=== PATIENT | female | born 1945 | race Caucasian/White ===

== ENCOUNTER 2017-02-13 10:23 | Observation (INO) | payer OTHER ==
[2017-02-13] VITALS (11 sets, daily range): BP systolic 122–205; BP diastolic 68–101; PULSE 72–88; RESP 16–18; TEMP 98.1–99.1; O2SAT 97–100
[~2017-02-13 10:23] MED LIST: CIPR500T4 PO; PYRI200T4 PO
[2017-02-13] MEDS ORDERED: SODIUM CHLOR 0.9% 1000 ML INJ 1,000 ML IV ONE (10:32)
--- NOTE | 2017-02-13 10:36 | PD ---
HPI Chief Complaint: Stroke Alert Time Seen by Provider: 10:32 Travel History International Travel<30 days: No Contact w/Intl Traveler<30days: No History of Present Illness HPI This is a 71-year-old female who presents to the emergency department with confusion that started at 9:30 this morning. Her says that she started to wander around the house and said she wanted to go to the drive-in tenriism across the street for craft fair that wasn't going on. She seemed aimless when she was wandering around the house. When they went in the car she was asking where her engagement ring was and he said she took it off for golfing yesterday. She said she didn't remember golfing yesterday. She started to look through her purse for it and then several minutes later she asked him again where her ring was. He says she doesn't remember any of the things that they did yesterday. He says this is very unlike her. She is healthy. She does have a history of high blood pressure. [facility] Past Medical History Hypertension: Yes (hx of not at present time-takes no meds) Menopausal: Yes Past Surgical History Hysterectomy: Yes Social History Alcohol Use: Yes (occas. wine) Tobacco Use: No Substance Use: No Allergies-Medications (Allergen,Severity, Reaction): Coded Allergies: penicillin G (Unverified Allergy, Severe, 02/13/17) Reported Meds & Prescriptions Reported Meds & Active Scripts Active Reported Glucosamine-Chondroitin 500-400 Mg Tab 1 Tab PO DAILY Lisinopril 10 Mg Tab 10 Mg PO BID Review of Systems Except as stated in HPI: all other systems reviewed are Neg Physical Exam Narrative GENERAL:Well appearing, no acute distress SKIN: Focused skin assessment warm and dry. HEAD: Atraumatic. Normocephalic. EYES: Pupils equal and round. No injection or drainage. ENT: Moist mucous membranes NECK: Trachea midline. CARDIOVASCULAR: Regular rate and rhythm. No murmur appreciated. RESPIRATORY: Clear to auscultation. Breath sounds equal bilaterally. GASTROINTESTINAL: Abdomen soft, non-tender, nondistended. MUSCULOSKELETAL: No obvious deformities. NEUROLOGICAL: Unable to name the president or the month but was able to name her name. No obvious cranial nerve deficits. No dysarthria or aphasia. No upper or lower extremity drift. No upper extremity ataxia. Visual jaramillo intact. PSYCHIATRIC: Appropriate mood and affect; insight and judgment normal. Data Data Last Documented VS Vital Signs Date Time Temp Pulse Resp B/P (MAP) Pulse Ox O2 Delivery O2 Flow Rate FiO2 02/13/17 10:52 100 Room Air 02/13/17 10:45 74 18 175/85 (115) 02/13/17 10:33 21 02/13/17 10:[address] Brain W/O Iv Contrast(Rout) (02/13/17 ) Cath For Specimen (02/13/17 10:32) Neuro Checks Q2HX12,Q4H (02/13/17 10:32) Nursing Bedside Swallow Assess .ONCE (02/13/17 10:32) Activity Bed Rest (02/13/17 10:32) Prothrombin Time / Inr (Pt) (02/13/17 10:32) Act Partial Throm Time (Ptt) (02/13/17 10:32) Complete Blood Count With Diff (02/13/17 10:32) Basic Metabolic Panel (Bmp) (02/13/17 10:32) Fibrinogen (02/13/17 10:32) Creatine Kinase (Cpk) (02/13/17 10:32) Troponin I (02/13/17 10:32) Ua Includes Microscopic (02/13/17 10:32) Drug Screen, Random Urine (02/13/17 10:32) Type And Screen (02/13/17 10:32) Electrocardiogram (02/13/17 ) Beta Hcg (Quant/Titer) (02/13/17 10:32) Consult Neurology (02/13/17 10:32) Sodium Chlor 0.9% 1000 Ml Inj (Ns 1000 M (02/13/17 10:32) Blood Glucose (02/13/17 10:32) Ecg Monitoring (02/13/17 10:32) Iv Access Insert/Monitor (02/13/17 10:32) NPO (02/13/17 10:32) Oximetry (02/13/17 10:32) Oxygen Administration (02/13/17 10:32) Resp Oxygen Isak C Titrat 1-4 L (02/13/17 10:32) (Hub Use Only)Inp Phy Cons/Ref (02/13/17 ) Us Carotid Arteries Comp Bilat (02/13/17 ) Echo 2d Comp With Doppler (02/13/17 ) Place In Observation (02/13/17 ) Vital Signs (Adult) Q4H (02/13/17 11:02) Neuro Checks Q4H (02/13/17 11:02) Activity Oob With Assistance (02/13/17 11:02) Dictaphone Typist / Telemetry .CONTINUOUS (02/13/17 11:02) Diet Regular Basic (02/13/17 Lunch) Sodium Chloride 0.9% Flush (Ns Flush) (02/13/17 11:15) Sodium Chloride 0.9% Flush (Ns Flush) (02/13/17 21:00) Acetaminophen (Tylenol) (02/13/17 11:15) Pt Request For Service (02/13/17 11:02) Speech Therapy Consult-Eval/Tx (02/13/17 11:02) Scd Bilateral/Knee High ANA.BID (02/13/17 11:02) Naloxone Inj (Narcan Inj) (02/13/17 11:15) Magnesium Hydroxide Liq (Milk Of Magnesi (02/13/17 11:15) Sennosides (Senokot) (02/13/17 11:15) Bisacodyl Supp (Dulcolax Supp) (02/13/17 11:15) Lactulose Liq (Lactulose Liq) (02/13/17 11:15) Mri Brain W/O Contrast (02/13/17 ) Aspirin Chew (Aspirin Chew) (02/14/17 09:00) Labs Laboratory Tests Test 02/13/17 10:44 02/13/17 10:47 White Blood Count 5.7 TH/MM3 Red Blood Count 4.47 MIL/MM3 Hemoglobin 13.2 GM/DL Hematocrit 39.3 % Mean Corpuscular Volume 87.8 FL Mean Corpuscular Hemoglobin 29.6 PG Mean Corpuscular Hemoglobin Concent 33.7 % Red Cell Distribution Width 13.2 % Platelet Count 208 TH/MM3 Mean Platelet Volume 8.4 FL Neutrophils (%) (Auto) 62.7 % Lymphocytes (%) (Auto) 24.1 % Monocytes (%) (Auto) 10.7 % Eosinophils (%) (Auto) 2.0 % Basophils (%) (Auto) 0.5 % Neutrophils # (Auto) 3.6 TH/MM3 Lymphocytes # (Auto) 1.4 TH/MM3 Monocytes # (Auto) 0.6 TH/MM3 Eosinophils # (Auto) 0.1 TH/MM3 Basophils # (Auto) 0.0 TH/MM3 CBC Comment DIFF FINAL Differential Comment Prothrombin Time 9.8 SEC Prothromb Time International Ratio 0.9 RATIO Activated Partial Thromboplast Time 25.4 SEC Fibrinogen 275 mg/dL Blood Urea Nitrogen 17 MG/DL Creatinine 0.90 MG/DL Random Glucose 105 MG/DL Calcium Level 8.7 MG/DL Sodium Level 141 MEQ/L Potassium Level 3.9 MEQ/L Chloride Level 104 MEQ/L Carbon Dioxide Level 28.7 MEQ/L Anion Gap 8 MEQ/L Estimat Glomerular Filtration Rate 61 ML/MIN Total Creatine Kinase 117 U/L Troponin I LESS THAN 0.02 NG/ML Human Chorionic Gonadotropin, Quant 1 MIU/ML Urine Collection Type CLEAN CATCH Urine Color YELLOW Urine Turbidity CLEAR Urine pH 6.5 Urine Specific [place] 1.005 Urine Protein NEG mg/dL Urine Glucose (UA) NEG mg/dL Urine Ketones NEG mg/dL Urine Occult Blood NEG Urine Nitrite NEG Urine Bilirubin NEG Urine Leukocyte Esterase NEG Urine WBC 0-2 /hpf Urine Squamous Epithelial Cells 0-5 /hpf Urine Oval Fat Bodies Urine Collection Time 10:47 Urine Opiates Screen NEG Urine Barbiturates Screen NEG Urine Amphetamines Screen NEG Urine Benzodiazepines Screen NEG Urine Cocaine Screen NEG Urine Cannabinoids Screen NEG MDM Medical Screen Exam Complete: Yes Emergency Medical Condition: Yes Differential Diagnosis Stroke, TIA, seizure, transient global amnesia, mass Narrative Course This is a 71-year-old female who presents to the emergency department with confusion. She has short term memory loss. She is confused on exam and can't tell me the month. She has an NIH stroke scale of 1. Stroke alert was called as the patient's symptoms started abruptly at 9:[address] was obtained which was reassuring. I spoke to Dr. Gonzales who suspects this is transient global amnesia. I had a conversation with the family and we elected not to proceed with TPA given the patient's low NIH stroke scale and low likelihood of stroke. Dr. Gonzales did come and see the patient in the emergency department. Patient will be admitted for continued evaluation and MRI. Stroke Alert NIHSS NIH Stroke Scale Result: 1 NIHSS Time Completed: 10:30 Thrombolytic Contraindications Contraindications: Refusal of Treatment Contraindications Comment: Given pt's low stroke scale and likelihood of transient global amnesia, family opted to defer tPA Physician Communication Physician Communication Discussed with Dr. Phillips and Dr. Gonzales Diagnosis Diagnosis: Primary Impression: Confusion Admitting Physician Requests: Admit Dana Valdez MD Feb 13, 2017 10:36
--- NOTE | 2017-02-13 10:46 | RADRPT ---
EXAM DATE/TIME: 02/13/2017 10:30 [facility] COMPARISON: No previous studies available for comparison. INDICATIONS : Stroke alert. Altered mental status, memory loss. RADIATION DOSE: 56.75 CTDIvol (mGy) This report was called by Dr Borja to Dr Valdez at 1044 MEDICAL HISTORY : Hypertension. SURGICAL HISTORY : Hysterectomy. ENCOUNTER: Initial ACUITY: 1 day PAIN SCALE: 0/10 LOCATION: cranial TECHNIQUE: Multiple contiguous axial images were obtained of the head. Using automated exposure control and adj ustment of the mA and/or kV according to patient size, radiation dose was kept as low as reasonably a chievable to obtain optimal diagnostic quality images. DICOM format image data is available electro nically for review and comparison. FINDINGS: CEREBRUM: The ventricles are normal for age. No evidence of midline shift, mass lesion, hemorrhage or acute in farction. No extra-axial fluid collections are seen. POSTERIOR FOSSA: The cerebellum and brainstem are intact. The 4th ventricle is midline. The cerebellopontine angle i s unremarkable. EXTRACRANIAL: The visualized portion of the orbits is intact. SKULL: The calvaria is intact. No evidence of skull fracture. CONCLUSION: Normal examination. Alfonzo Borja Jr., MD on February 13, 2017 at 10:42 Board Certified Radiologist. This report was verified electronically.
[2017-02-13 10:48] LABS: AUTOMATED NEUTROPHIL # 3.6 TH/MM3 (1.8-7.7); BASOPHIL % 0.5 % (0.0-2.0); EOSINOPHIL # 0.1 TH/MM3 (0-0.4); HEMATOCRIT 39.3 % (35.0-46.0); HEMO FLAGS DIFF FINAL; LYMPH % 24.1 % (9.0-44.0); LYMPHOCYTE # 1.4 TH/MM3 (1.0-4.8); MEAN CELL VOLUME 87.8 FL (80.0-100.0); MEAN CORPUSCULAR HEMOGLOBIN 29.6 PG (27.0-34.0); MEAN CORPUSCULAR HGB CONC 33.7 % (32.0-36.0); MONO % 10.7 % (0.0-8.0); NEUT % 62.7 % (16.0-70.0); PLATELET COUNT 208 TH/MM3 (150-450); RED BLOOD COUNT 4.47 MIL/MM3 (4.00-5.30); RED CELL DISTRIBUTION WIDTH 13.2 % (11.6-17.2); WHITE BLOOD COUNT 5.7 TH/MM3 (4.0-11.0)
[2017-02-13 10:57] LABS: CHLORIDE 104 MEQ/L (98-107); POTASSIUM 3.9 MEQ/L (3.5-5.1); SODIUM (NA) 141 MEQ/L (136-145)
[2017-02-13 11:00] LABS: ANION GAP 8 MEQ/L (5-15); BICARBONATE 28.7 MEQ/L (21.0-32.0); BLOOD UREA NITROGEN 17 MG/DL (7-18)
[2017-02-13 11:01] LABS: BLOOD, URINE NEG (NEG); GLUCOSE,URINE NEG (NEG); KETONE, URINE NEG (NEG); NITRITE,URINE NEG (NEG)
[2017-02-13 11:01] LABS: APTT (PATIENT) 25.4 SEC (24.3-30.1); INTERNATIONAL NORMALIZED RATIO 0.9 RATIO; PROTHROMBIN TIME - PATIENT 9.8 SEC (9.8-11.6)
[2017-02-13 11:02] LABS: METHOD OF COLLECTION CLEAN CATCH; URINE COLOR YELLOW (YELLW/STRAW)
[2017-02-13] MEDS ORDERED: LISI10TA3 PO (11:02)
[2017-02-13] MEDS ORDERED: GLUC500T4 PO (11:02)
[2017-02-13 11:03] LABS: GLOMERULAR FILTRATION RATE 61 ML/MIN (>89)
[2017-02-13 11:03] LABS: PH, URINE 6.5 (5.0-8.5); SQUAMOUS EPITHELIAL CELL URINE 0-5 /hpf (0-5); WBC, URINE 0-2 /hpf (0-5)
[2017-02-13 11:07] LABS: CREATINE KINASE 117 U/L (26-192)
[2017-02-13 11:08] LABS: BETA HCG QUANT 1 MIU/ML (0-5)
[2017-02-13] MEDS ORDERED: ACETAMINOPHEN 325 MG TAB PO PRN (11:15)
[2017-02-13] MEDS ORDERED: SENNOSIDES 8.6 MG TAB PO PRN (11:15)
[2017-02-13] MEDS ORDERED: BISACODYL 10 MG SUPP RECTAL PRN (11:15)
[2017-02-13] MEDS ORDERED: LACTULOSE SYRUP 20 GM/30 ML CUP PO PRN (11:15)
[2017-02-13] MEDS ORDERED: MAGNESIUM HYDROXIDE SUSP 30 ML CUP PO PRN (11:15)
[2017-02-13] MEDS ORDERED: NALOXONE HCL 0.4 MG/ML AMP IV PUSH PRN (11:15)
[2017-02-13] MEDS ORDERED: SODIUM CHLORIDE 0.9% FLUSH 10 ML FLUSH IV FLUSH PRN (11:15)
--- NOTE | 2017-02-13 12:36 | RADRPT ---
EXAM DATE/TIME: 02/13/2017 12:08 [facility] COMPARISON: No previous studies available for comparison. INDICATIONS : Cerebrovascular accident. MEDICAL HISTORY : Hypertension. SURGICAL HISTORY : Hysterectomy. ENCOUNTER: Initial ACUITY: 1 day PAIN SCORE: 0/10 LOCATION: Bilateral neck PEAK SYSTOLIC VELOCITIES (cm/sec): ICA/CCA RATIO: Right: 1.0 Left: 1.5 ICA: Right: 94 Left: 144 CCA: Right: 97 Left: 95 ECA: Right: 86 Left: 88 VERTEBRAL: Right: 48 antegrade Left: 53 antegrade Elevated flow velocities and ICA/CCA ratios have been found to correlate with increased degrees of vessel stenosis, calculated as percentage of diameter relative to a normal segment of distal ICA/CCA FINDINGS: RIGHT CAROTID: No significant stenosis is visualized. The waveforms are within normal limits. LEFT CAROTID: No significant stenosis is visualized. The waveforms are within normal limits. VERTEBRAL ARTERIES: Antegrade flow is seen in both vertebral arteries. MISCELLANEOUS: None. CONCLUSION: 1. No evidence for hemodynamically significant stenosis. Jose Estrada MD on February 13, 2017 at 12:35 Board Certified Radiologist. This report was verified electronically.
--- NOTE | 2017-02-13 13:33 | MB ---
cc: MANJINDER RAMOS M.D. DATE OF CONSULTATION: 02/13/2017 HISTORY OF PRESENT ILLNESS The patient is a 71-year-old woman seen in neurological consultation. She came in as a Stroke Alert and I spoke to Dr. Cantu on a couple of occasions. I spoke to the patient and her . I saw her while she was still in the emergency room. She woke up and seemed to be fine this morning, had no problems and ate breakfast. She then suddenly became confused. She was wandering in the house and nearby. She was asking the same question to the . She inquired multiple times about her wedding ring as she apparently removed it yesterday to play golf. She could talk and ambulate well. She was brought to the hospital and in the emergency room her NIH Stroke Scale was felt to be low at approximately 1. CT brain and carotid ultrasound were unremarkable. PAST MEDICAL HISTORY She has a history of hypertension and she takes lisinopril. She does not take any blood thinners or aspirin. SOCIAL HISTORY Occasional wine and no smoking. She is retired, although she does some part-time work. NEUROLOGIC EXAMINATION The neurologic exam was remarkable for mild difficulty with recent memory. She still had difficulty with some information about the testing and the evaluation in the hospital, but she was oriented, knew the place. Admits that she was aware of some confusion earlier today but had poor recall of that. She recalled the first few activities in the morning and the confirmed these. She failed to recall that she had a CT brain and blood work, but she was aware she was in the emergency room and she knew the date. She is in no distress. Reflexes are 1+, plantar responses flexor. LABORATORY The laboratory data showed essentially normal chemistry. Toxicology was negative. CBC normal. Urinalysis negative. INR and APTT normal. EKG EKG was sinus rhythm. ASSESSMENT Probable transient global amnesia. She was not felt to be a candidate for TPA because of the diagnosis discussed. She is already significantly improved by the time I saw her a couple of hours ago. PLAN The patient is going to be admitted for observation. The plan is to have MRI brain, MRA head, and baby aspirin daily. Will check a lipid profile. I will follow the neurological course. Thank you for asking us to assist in her care. MD MARILEE Lyles/HERIBERTO /1:09 PM /1:26 PM
[2017-02-13 14:35] LABS: HDL CHOLESTEROL 69.8 MG/DL (40.0-60.0)
--- NOTE | 2017-02-13 15:45 | HHI.HP ---
[facility] Phys[facility] Non-Staff Admission Diagnosis confusion Diagnoses: Travel History International Travel<30 Days: No Contact w/Intl Traveler <30 Da: No Traveled to Known Affected Are: No History of Present Illness This is a pleasant 71-year-old female with past medical history of hypertension who presents to the ER today brought by her who stated she had an episode of confusion this morning. Apparently the patient woke up and was fine however later in the morning she became confused, asking repetitive questions wandering around the house and did not seem herself. There was no slurred speech, paresthesias, unilateral weakness. The patient was brought to the ER for evaluation. Head CT was negative. Symptoms resolve rapidly and she is currently back to baseline. The patient does not take an aspirin a day. Patient has no previous history of TIA. No tobacco use history. She has been in a good state of health and 10 point review systems otherwise negative. Past Family Social History Past Medical History Hypertension Past Surgical History Hysterectomy Reported Medications Allergies Coded Allergies Type Severity Reaction Last Updated Verified penicillin G Allergy Severe 02/13/17 No Active Scripts Medications Dose Route/Sig Max Daily Dose Days Date Category Glucosamine-Chondroitin 500-400 Mg Tab 1 Tab PO DAILY 02/13/17 Reported Lisinopril 10 Mg Tab 10 Mg PO BID 02/13/17 Reported Allergies: Coded Allergies: penicillin G (Unverified Allergy, Severe, 02/13/17) Family History Father had a stroke Social History No tobacco use history Physical Exam Vital Signs Vital Signs Date Time Temp Pulse Resp B/P (MAP) Pulse Ox O2 Delivery O2 Flow Rate FiO2 02/13/17 14:00 99.1 82 16 167/70 (102) 97 02/13/17 13:00 99.1 72 16 189/90 (123) 99 02/13/17 12:34 77 18 171/78 (109) 99 02/13/17 11:17 72 18 174/88 (116) 100 Room Air 02/13/17 10:52 100 Room Air 02/13/17 10:49 100 Room Air 02/13/17 10:49 100 Room Air 02/13/17 10:45 74 18 175/85 (115) 100 Room Air 02/13/17 10:33 99 21 02/13/17 10:33 99 21 02/13/17 10:23 98.1 84 18 205/101 (135) 100 Physical Exam GENERAL: This is a well-nourished, well-developed lean female patient , in no apparent distress. SKIN: No rashes, ecchymoses or lesions. Cool and dry. HEAD: Atraumatic. Normocephalic. EYES: Pupils equal round and reactive. Extraocular motions intact. No scleral icterus. No injection or drainage. ENT: Throat without erythema, tonsillar hypertrophy or exudate. Uvula midline. Airway patent. NECK: Trachea midline. No JVD or lymphadenopathy. Supple, nontender, no meningeal signs. CARDIOVASCULAR: Regular rate and rhythm without murmurs, gallops, or rubs. RESPIRATORY: Clear to auscultation. Breath sounds equal bilaterally. No wheezes , rales, or rhonchi. GASTROINTESTINAL: Abdomen soft, non-tender, nondistended. MUSCULOSKELETAL: Extremities without clubbing, cyanosis, or edema. No joint tenderness, effusion, or edema noted. NEUROLOGICAL: Awake and alert and oriented 3. Cranial nerves II through XII intact. Motor and sensory grossly within normal limits. Five out of 5 muscle strength in all muscle groups. Normal speech. Laboratory Laboratory Tests Test 02/13/17 10:44 02/13/17 10:47 White Blood Count 5.7 Red Blood Count 4.47 Hemoglobin 13.2 Hematocrit 39.3 Mean Corpuscular Volume 87.8 Mean Corpuscular Hemoglobin 29.6 Mean Corpuscular Hemoglobin Concent 33.7 Red Cell Distribution Width 13.2 Platelet Count 208 Mean Platelet Volume 8.4 Neutrophils (%) (Auto) 62.7 Lymphocytes (%) (Auto) 24.1 Monocytes (%) (Auto) 10.7 Eosinophils (%) (Auto) 2.0 Basophils (%) (Auto) 0.5 Neutrophils # (Auto) 3.6 Lymphocytes # (Auto) 1.4 Monocytes # (Auto) 0.6 Eosinophils # (Auto) 0.1 Basophils # (Auto) 0.0 CBC Comment DIFF FINAL Differential Comment Prothrombin Time 9.8 Prothromb Time International Ratio 0.9 Activated Partial Thromboplast Time 25.4 Fibrinogen 275 Blood Urea Nitrogen 17 Creatinine 0.90 Random Glucose 105 Calcium Level 8.7 Sodium Level 141 Potassium Level 3.9 Chloride Level 104 Carbon Dioxide Level 28.7 Anion Gap 8 Estimat Glomerular Filtration Rate 61 Total Creatine Kinase 117 Troponin I LESS THAN 0.02 Triglycerides Level 61 Cholesterol Level 174 LDL Cholesterol 92 HDL Cholesterol 69.8 Cholesterol/HDL Ratio 2.49 Human Chorionic Gonadotropin, Quant 1 Urine Collection Type CLEAN CATCH Urine Color YELLOW Urine Turbidity CLEAR Urine pH 6.5 Urine Specific [place] 1.005 Urine Protein NEG Urine Glucose (UA) NEG Urine Ketones NEG Urine Occult Blood NEG Urine Nitrite NEG Urine Bilirubin NEG Urine Leukocyte Esterase NEG Urine WBC 0-2 Urine Squamous Epithelial Cells 0-5 Urine Oval Fat Bodies Urine Collection Time 10:47 Urine Opiates Screen NEG Urine Barbiturates Screen NEG Urine Amphetamines Screen NEG Urine Benzodiazepines Screen NEG Urine Cocaine Screen NEG Urine Cannabinoids Screen NEG Result Diagram: 02/13/17 1044 02/13/17 1044 Imaging Last Impressions Head CT 02/13/17 0000 Signed Impressions: Service Date/Time: Monday, February 13, 2017 10:30 - CONCLUSION: Normal examination. Alfonzo Borja Jr., MD Carotid Artery Ultrasound 02/13/17 0000 Signed Impressions: Service Date/Time: Monday, February 13, 2017 12:08 - CONCLUSION: 1. No evidence for hemodynamically significant stenosis. MD Jeff Leonardo VTE Risk Assessment Jeff VTE Risk Assessment: No/Low Risk (score <= 1) Caprini Risk Assessment Model Point Value = 1 Point Value = 2 Point Value = 3 Point Value = 5 Age 41-60 Minor surgery BMI > 25 kg/m2 Swollen legs Varicose veins or History of unexplained or recurrent spontaneous Oral contraceptives or hormone replacement Sepsis (< 1 month) Serious lung disease, including pneumonia (< 1 month) Abnormal pulmonary function Acute myocardial infarction Congestive heart failure (< 1 month) History of inflammatory bowel disease Medical patient at bed rest Age 61-74 Arthroscopic surgery Major open surgery (> 45 min) Laparoscopic surgery (> 45 min) Malignancy Confined to bed (> 72 hours) Immobilizing plaster cast Central venous access Age >= 75 History of VTE Family history of VTE Factor V Leiden Prothrombin [id number] Lupus anticoagulant Anticardiolipin antibodies Elevated serum homocysteine Heparin-induced thrombocytopenia Other congenital or acquired thrombophilia Stroke (< 1 month) Elective arthroplasty Hip, pelvis, or leg fracture Acute spinal cord injury (< 1 month) Prophylaxis Regimen Total Risk Factor Score Risk Level Prophylaxis Regimen 0-1 Low Early ambulation 2 Moderate Order ONE of the following: *Sequential Compression Device (SCD) *Heparin 5000 units SQ BID 3-4 Higher Order ONE of the following medications: *Heparin 5000 units SQ TID *Enoxaparin/Lovenox 40 mg SQ daily (WT < 150 kg, CrCl > 30 mL/min) *Enoxaparin/Lovenox 30 mg SQ daily (WT < 150 kg, CrCl > 10-29 mL/min) *Enoxaparin/Lovenox 30 mg SQ BID (WT < 150 kg, CrCl > 30 mL/min) AND/OR *Sequential Compression Device (SCD) 5 or more Highest Order ONE of the following medications: *Heparin 5000 units SQ TID (Preferred with Epidurals) *Enoxaparin/Lovenox 40 mg SQ daily (WT < 150 kg, CrCl > 30 mL/min) *Enoxaparin/Lovenox 30 mg SQ daily (WT < 150 kg, CrCl > 10-29 mL/min) *Enoxaparin/Lovenox 30 mg SQ BID (WT < 150 kg, CrCl > 30 mL/min) AND *Sequential Compression Device (SCD) Assessment and Plan Problem List: (1) Transient global amnesia ICD Code: G45.4 - Transient global amnesia (2) HTN (hypertension) ICD Code: I10 - Essential (primary) hypertension Assessment and Plan -Transient confusion, probably transient global amnesia. We'll place patient in observation with serial neuro checks, MRI MRA brain, 2-D echocardiogram. Check lipid profile. Doppler carotid ultrasound is negative for stenosis. Place patient on baby aspirin a day. Appreciate neurology seeing the patient in consultation with this. -Hypertension. Resume home medications. -DVT prophylaxis with SCDs. Crystal Phillips MD Feb 13, 2017 15:45
--- NOTE | 2017-02-13 15:49 | RADRPT ---
EXAM DATE/TIME: 02/13/2017 15:06 [facility] COMPARISON: No previous studies available for comparison. INDICATIONS : CVA. Confusion. MEDICAL HISTORY : Hypertension. SURGICAL HISTORY : Hysterectomy. Prolapse bladder repair. ENCOUNTER: Initial ACUITY: 2 day PAIN SCORE: 3/10 LOCATION: neck TECHNIQUE: Multiplanar, multisequence MRI of the brain was performed without contrast. FINDINGS: CEREBRUM: The examination demonstrates a 9 mm area of hemosiderin in the posterior left temporal cortex this is most consistent with a small cavernous angioma. There is no evidence of edema surrounding this. The ventricles are normal in size and configuration. No extra-axial fluid collections are seen. WHITE MATTER: There are some punctate areas of increased T2 signal most consistent with mild microvascular ischemic demyelinative change. No significant signal abnormalities are seen in the white matter. POSTERIOR FOSSA: The cerebellum and brainstem are intact. The 4th ventricle is midline. The cerebellopontine angle is unremarkable. The cerebellar tonsils are normal in position. DIFFUSION IMAGING: No focal areas of restricted diffusion are seen. No evidence of acute infarction. EXTRACRANIAL: The visualized portions of the orbits and paranasal sinuses are unremarkable. CONCLUSION: 1. No findings to indicate acute cortical infarction. 2. Punctate area of hemosiderin in the posterior left temporal cortex most consistent with a small ca vernous angioma. 3. Mild microvascular ischemic demyelinative change. Chaparro Saldana MD on February 13, 2017 at 15:45 Board Certified Radiologist. This report was verified electronically.
--- NOTE | 2017-02-13 15:50 | RADRPT ---
EXAM DATE/TIME: 02/13/2017 15:06 [facility] COMPARISON: MRI BRAIN W/O CONTRAST, February 13, 2017, 15:06. INDICATIONS : CVA. MEDICAL HISTORY : Hypertension. SURGICAL HISTORY : Hysterectomy. Prolapsed bladder surgery. ENCOUNTER: Initial ACUITY: 1 day PAIN SCORE: 0/10 LOCATION: head Please note a normal MRA of the brain does not entirely exclude the possibility of a small aneurysm, nor the possibility of distal intracranial vessel disease. TECHNIQUE: 3D time of flight MRA was performed. Source images, multiplanar STS MIP, and 3D volume MIP reconstru ctions were reviewed. FINDINGS: There is excellent visualization of the major intracranial arteries out to the second-order branch ve ssels. There is no evidence for aneurysm, vessel truncation or stenosis, and no evidence for vascula r malformation. CONCLUSION: 1. Negative examination. Chaparro Saldana MD on February 13, 2017 at 15:48 Board Certified Radiologist. This report was verified electronically.
--- NOTE | 2017-02-13 18:16 | EKG ---
Date Performed: 02/13/2017 Time Performed: 10:47:59 PTAGE: 71 years EKG: Sinus rhythm NORMAL ECG NO PREVIOUS TRACING DOCTOR: Nigel Miller Interpretating Date/Time 02/13/2017 18:16:17
[2017-02-13] MEDS: SODIUM CHLORIDE 0.9% FLUSH 10 ML FLUSH IV FLUSH SCH (21:00)
[2017-02-14] VITALS: BP 137/65; PULSE 92; RESP 16; TEMP 98.3; O2SAT 99
[2017-02-14 04:00] VITALS: BP 156/81; PULSE 74; RESP 16; TEMP 98.6; O2SAT 95
[2017-02-14 07:00] VITALS: PULSE 66; PULSE 69
[2017-02-14 07:23] VITALS: BP 174/85; PULSE 70; RESP 18; O2SAT 98
[2017-02-14 08:00] VITALS: PULSE 66; TEMP 98
[2017-02-14] MEDS: SODIUM CHLORIDE 0.9% FLUSH 10 ML FLUSH IV FLUSH SCH (08:27)
[2017-02-14 09:00] VITALS: PULSE 84
[2017-02-14] MEDS ORDERED: ASPIRIN 81 MG CHEW TAB CHEW SCH (09:00)
--- NOTE | 2017-02-14 09:20 | HHI.PR ---
Subjective Remarks Patient is doing well. No new neurologic symptoms. No further memory loss or confusion. Discussed with at bedside. They have a golf osman off at 1 PM and are hoping to get out of the hospital by then. Objective Vitals Vital Signs Date Time Temp Pulse Resp B/P (MAP) Pulse Ox O2 Delivery O2 Flow Rate FiO2 02/14/17 08:00 98.0 02/14/17 04:00 98.6 74 16 156/81 (106) 95 02/14/17 00:00 98.3 92 16 137/65 (89) 99 02/13/17 21:00 98 21 02/13/17 20:00 98.3 80 16 156/73 (100) 98 02/13/17 20:00 80 02/13/17 16:00 88 16 122/68 (86) 02/13/17 14:00 99.1 82 16 167/70 (102) 97 02/13/17 13:00 99.1 72 16 189/90 (123) 99 02/13/17 12:34 77 18 171/78 (109) 99 02/13/17 11:17 72 18 174/88 (116) 100 Room Air 02/13/17 10:52 100 Room Air 02/13/17 10:49 100 Room Air 02/13/17 10:49 100 Room Air 02/13/17 10:45 74 18 175/85 (115) 100 Room Air 02/13/17 10:33 99 21 02/13/17 10:33 99 21 02/13/17 10:23 98.1 84 18 205/101 (135) 100 I/O 02/13/17 02/13/17 02/13/17 02/14/17 02/14/17 02/14/17 07:00 15:00 23:00 07:00 15:00 23:00 Intake Total 93.5 ml 1400 ml Output Total 1350 ml 700 ml Balance -1256.5 ml 700 ml Intake Oral 500 ml IV Total 93.5 ml 900 ml Output Urine Total 1350 ml 700 ml # Voids 1 3 # Bowel Movements 1 Result Diagram: 02/13/17 1044 02/13/17 1044 Objective Remarks GENERAL: Well-nourished, well-developed patient. SKIN: Warm and dry. HEAD: Normocephalic. EYES: No scleral icterus. No injection or drainage. NECK: Supple, trachea midline. No JVD or lymphadenopathy. CARDIOVASCULAR: Regular rate and rhythm without murmurs, gallops, or rubs. RESPIRATORY: Breath sounds equal bilaterally. No accessory muscle use. GASTROINTESTINAL: Abdomen soft, non-tender, nondistended. EXTREMITIES: No cyanosis, or edema. NEUROLOGICAL: Awake, alert, and oriented x 3. Non-focal. A/P Problem List: (1) Transient global amnesia ICD Code: G45.4 - Transient global amnesia (2) HTN (hypertension) ICD Code: I10 - Essential (primary) hypertension Assessment and Plan -Transient confusion, probably transient global amnesia. MRI/MRA brain negative. 2-D echocardiogram pending. Check lipid profile. Doppler carotid ultrasound is negative for stenosis. LDL is 90 which the patient was surprised to hear as she states she is told that her cholesterol is normally very low. Patient has been placed on a baby aspirin a day. Appreciate neurology seeing the patient in consultation with this. I discussed the patient with Dr. Gonzales - he agrees with baby aspirin and statin. Patient may be discharged. Follow- up with PCP in one week. -Hypertension. Resume home medications. -DVT prophylaxis with SCDs. Crystal Phillips MD Feb 14, 2017 09:20
[2017-02-14] MEDS ORDERED: ASPI81 CHEW (09:30)
[2017-02-14] MEDS ORDERED: LIPI40TA PO (09:30)
--- NOTE | 2017-02-14 13:59 | ECHRPT ---
Indication: CVA/TIA CONCLUSIONS The left ventricular systolic function is low normal with an estimated ejection fraction in the rang e of 50- 55%. Wall thickness is normal. Normal left ventricular size. Mild mitral valve regurgitation. There is mild to moderate tricuspid valve regurgitation. The estimated pulmonary arterial pressure is 40 mmHg. There is a small pericardial effusion present. BP: / HR: Rhythm: Sinus MEASUREMENTS (Male / Female) Normal Values Technical Quality:Fair 2D ECHO LV Diastolic Diameter PLAX 3.9 cm 4.2 - 5.9 / 3.9 - 5.3 cm LV Systolic Diameter PLAX 3.0 cm IVS Diastolic Thickness 0.8 cm 0.6 - 1.0 / 0.6 - 0.9 cm LVPW Diastolic Thickness 0.9 cm 0.6 - 1.0 / 0.6 - 0.9 cm LV Relative Wall Thickness 0.4 LVOT Diameter 1.9 cm M-MODE Aortic Root Diameter MM 2.8 cm LA Systolic Diameter MM 2.7 cm LA Ao Ratio MM 1.0 AV Cusp Separation MM 1.8 cm DOPPLER AV Peak Velocity 122.0 cm/s AV Peak Gradient 6.0 mmHg LVOT Peak Velocity 102.0 cm/s LVOT Peak Gradient 4.2 mmHg AV Area Cont Eq pk 2.4 cm MR Peak Velocity 309.0 cm/s MR Peak Gradient 38.2 mmHg Mitral E Point Velocity 100.0 cm/s Mitral A Point Velocity 73.5 cm/s Mitral E to A Ratio 1.4 LV E' Lateral Velocity 9.2 cm/s Mitral E to LV E' Lateral Ratio 10.9 LV E' Septal Velocity 6.4 cm/s Mitral E to LV E' Septal Ratio 15.6 TR Peak Velocity 274.0 cm/s TR Peak Gradient 30.0 mmHg Right Atrial Pressure 10.0 mmHg Pulmonary Artery Systolic Pressu 40.0 mmHg Right Ventricular Systolic Press 40.0 mmHg PV Peak Velocity 109.0 cm/s PV Peak Gradient 4.8 mmHg FINDINGS LEFT VENTRICLE The left ventricular systolic function is low normal with an estimated ejection fraction in the rang e of 50- 55%. Wall thickness is normal. Normal left ventricular size. RIGHT VENTRICLE Normal right ventricular size and systolic function. LEFT ATRIUM The left atrial size is normal. RIGHT ATRIUM The right atrial size is normal. ATRIAL SEPTUM Normal atrial septal thickness without atrial level shunting by limited color doppler interrogation. AORTA The aortic root and proximal ascending aorta are normal in size on limited imaging. MITRAL VALVE Mild mitral valve regurgitation. AORTIC VALVE Trileaflet aortic valve. No aortic valve stenosis or regurgitation. TRICUSPID VALVE There is mild to moderate tricuspid valve regurgitation. The estimated pulmonary arterial pressure is 40 mmHg. PULMONARY VALVE No pulmonary valve regurgitation or stenosis. VESSELS The inferior vena cava is normal in size. PERICARDIUM There is a small pericardial effusion present. Harshad Bradford MD (Electronically Signed) Final Date:14 February 2017 13:58
== END 2017-02-14 12:20 | disposition home or self-care (01) ==
LOC: PHED 10:23 → PHEDA 11:04 → PHICU 12:45
PROVIDERS: ADMIT Family Medicine; ATTEND Family Medicine
DX: G45.4 Transient global amnesia (principal); I10 Essential (primary) hypertension; R41.82 Altered mental status, unspecified; R29.701 NIHSS score 1; Z79.899 Other long term (current) drug therapy
CPT/HCPCS: 70450; 70544; 70551; 80048; 80061; 80307; 81001; 82550; 84484; 84702; 85025; 85384; 85610; 85730; 86077; 86850; 86870; 86900; 86901; 86920; 86922; 92610; 93005; 93306; 93880; 96360; 96361; 97162; 99285; G0378; G8987; G8988; G8996; G8997; G8998; J7030